=== PATIENT | female | born 1995 | race Hispanic/Latino ===

== ENCOUNTER 2023-09-04 16:48 | Emergency (ER) | payer SELFPAY ==
[2023-09-04] MEDS ORDERED: LIDOCAINE 1% MPF 5 ML VIAL ONE (17:17)
--- NOTE | 2023-09-04 17:38 | EDPHYS ---
Physician Documentation [facility] Name: Ai Andrea Age: 27 yrs Sex: Female : 1995 Arrival Date: 09/04/2023 Time: 16:48 Bed 11 Private MD: ED Physician Brayan Lockhart HPI: 09/03 17:04 This 27 yrs old Female presents to ER via Unassigned with complaints of kb Laceration To Hand. 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 - Infectious Disease History:: Denies. - Social history:: Smoking status: Patient denies any tobacco usage or history of. ROS: 17:04 Constitutional: As per HPI kb Exam: 17:06 Constitutional: This is a well developed, well nourished patient who is awake, alert, kb and in no acute distress. Head/Face: Normocephalic, atraumatic. ENT: Moist Mucous membranes Cardiovascular: Regular rate Respiratory: Respirations even and unlabored. No increased work of breathing. Talking in full sentences MS/ Extremity: Pulses equal, no cyanosis. Neurovascular intact. Full, normal range of motion. Neuro: Awake and alert, GCS 15, oriented to person, place, time, and situation. Moves all extremities. Normal gait. 17:06 Skin: injury, laceration(s), the wound is approximately 2.5 cm(s), of the right thumb, that can be described as clean, no foreign body, linear, with mild bleeding, Vital Signs: 17:02 BP 120 / 102; Pulse 74; Resp 16; Temp 97.4(TE); Pulse Ox 100% ; Weight 57.61 kg; Height hb 5 ft. 2 in. ; Pain 8/10; 18:04 BP 118 / 78; Pulse 82; Resp 18; Temp 98.9; Pulse Ox 100% ; Pain 0/10; kb3 17:02 Body Mass Index 23.23 (57.61 kg, 157.48 cm) hb 17:02 Pain Scale: Adult hb 18:04 Pain Scale: Adult kb3 Laceration: 17:47 Wound Repair of 2.5cm ( 1.0in ) subcutaneous laceration to right thumb. Irregularly kb shaped.. Distal neuro/vascular/tendon intact. Anesthesia: Wound infiltrated with 2 mls of 1% lidocaine. Wound prep: Extensive cleansing with hibiclenz by me, Wound irrigation with saline by me. Skin closed with 5 4-0 Prolene using simple sutures and sterile technique. Patient tolerated well. MDM: 17:00 Patient medically screened. kb 17:06 Differential diagnosis: superficial laceration, tendon injury, vascular injury. Data kb reviewed: vital signs, nurses notes. Test considered but Not performed: X-ray: hand xray considered but laceration is superficial and pt has full ROM of thumb without pain. Counseling: I had a detailed discussion with the patient and/or guardian regarding the historical points, exam findings, and any diagnostic results supporting the discharge/admit diagnosis, the need for outpatient follow up, a family practitioner, to return to the emergency department if symptoms worsen or persist or if there are any questions or concerns that arise at home. 09/03 17:05 Order name: Dressing - Wound; Complete Time: 17:27 kb 09/03 17:05 Order name: Gloves, Sterile; Complete Time: 17:27 kb 09/03 17:05 Order name: Prolene, Sutures; Complete Time: 17:27 kb 09/03 17:05 Order name: Setup Suture Tray; Complete Time: 17:27 kb 09/03 17:37 Order name: Finger Splint; Complete Time: 17:51 kb Administered Medications: 17:56 Drug: Boostrix Tdap IM 0.5 ml IM once; as a single dose Route: IM; Site: right deltoid; kb3 18:00 Follow up: Response: No adverse reaction kb3 18:00 Drug: Lidocaine Infiltration (1 %) 1 vials 5 ml Infiltration once; to bedside {Note: STEPHANIE kb3 administered during procedure.} Volume: 5 ml; Route: Infiltration; Disposition Summary: 09/04/23 17:38 Discharge Ordered Notes: Location: Home kb Condition: Stable kb Diagnosis - Laceration without foreign body of right thumb without damage to nail kb Followup: kb - With: Emergency Department - When: As needed - Reason: Worsening of condition Followup: kb - With: Private Physician - When: 2 - 3 days - Reason: Recheck today's complaints, Continuance of care, Re-evaluation by your physician Discharge Instructions: - Discharge Summary Sheet kb - Laceration Care, Adult, [id number] kb Forms: - Medication Reconciliation Form kb - Antibiotic Education kb - Prescription Opioid Use kb - Patient Portal Instructions kb - Leadership Thank You Letter kb Addendum: 09/06/2023 14:18 I was immediately available for consultation during this patient's visit. I did not e c2 personally see the patient or discuss the patient with the AUTUMN. . Signatures: Colleen Escamilla, WENDI CLEVELAND-Loni Lopez, RN RN Brooklynn Ibarra RN RN kb3 Brayan Lockhart MD MD ec2
--- NOTE | 2023-09-04 17:38 | ER ---
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 Bleeding controlled by pressurel. Coronavirus screen: At this time, the client does not indicate any symptoms associated with coronavirus-19. Ebola Screen: No symptoms or risks identified at this time. Complicating Factors: There are no complicating factors for this patient. Initial Sepsis Screen: Does the patient meet any 2 criteria? No. Patient's initial sepsis screen is negative. Does the patient have a suspected source of infection? No. Patient's initial sepsis screen is negative. Risk Assessment: Do you want to hurt yourself or someone else? Patient reports no desire to harm self or others. Onset of symptoms was September 04, 2023. 17:02 Method Of Arrival: Ambulatory hb 17:02 Acuity: DIANNE 4 hb Triage Assessment: 17:19 General: Appears in no apparent distress. uncomfortable, Behavior is calm, cooperative. hb Pain: Pain currently is 8 out of 10 on a pain scale. Neuro: Level of Consciousness is awake, alert, obeys commands, Oriented to person, place, time, situation. Cardiovascular: Patient's skin is warm and dry. Respiratory: Respiratory effort is even, unlabored, Respiratory pattern is regular, symmetrical. Injury Description: Laceration sustained to right thumb is jagged, 2.6 to 7.5 cm long, bleeding moderately, was sustained 30-60 minutes ago. 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 - Infectious Disease History:: Denies. - Social history:: Smoking status: Patient denies any tobacco usage or history of. Screenin:15 [facility] ED Fall Risk Assessment (Adult) History of falling in the last 3 months, kb3 including since admission No falls in past 3 months (0 pts) Confusion or Disorientation No (0 pts) Intoxicated or Sedated No (0 pts) Impaired Gait No (0 pts) Mobility Assist Device Used No (0 pt) Altered Elimination No (0 pt) Score/Fall Risk Level 0 - 2 = Low Risk Oriented to surroundings. Abuse screen: Denies threats or abuse. Denies injuries from another. Nutritional screening: No deficits noted. Tuberculosis screening: No symptoms or risk factors identified. Assessment: 17:15 General: Appears in no apparent distress. Behavior is calm, cooperative. Injury kb3 Description: Laceration sustained to dorsal aspect of distal phalanx of right thumb is clean, 0.5 to 2.5 cm long, not bleeding, was sustained 30-60 minutes ago. is bleeding a small amount a dressing was applied. Vital Signs: 17:02 BP 120 / 102; Pulse 74; Resp 16; Temp 97.4(TE); Pulse Ox 100% ; Weight 57.61 kg; Height hb 5 ft. 2 in. ; Pain 8/10; 18:04 BP 118 / 78; Pulse 82; Resp 18; Temp 98.9; Pulse Ox 100% ; Pain 0/10; kb3 17:02 Body Mass Index 23.23 (57.61 kg, 157.48 cm) hb 17:02 Pain Scale: Adult hb 18:04 Pain Scale: Adult kb3 ED Course: 16:50 Patient arrived in ED. rg4 17:00 Colleen Escamilla [facility]NP[facility]C [facility]. kb 17:00 Brayan Lockhart MD is Attending Physician. kb 17:19 Triage completed. hb 17:19 Arm band placed on. hb 17:30 Patient has correct armband on for positive identification. Bed in low position. Call kb3 light in reach. Provided Education on: Plan of care. 18:00 No provider procedures requiring assistance completed. Patient did not have IV access kb3 during this emergency room visit. Dressings: 4X4s X 1; dorsal aspect of distal phalanx of right thumb. Finger splint to right thumb. Administered Medications: 17:56 Drug: Boostrix Tdap IM 0.5 ml IM once; as a single dose Route: IM; Site: right deltoid; kb3 18:00 Follow up: Response: No adverse reaction kb3 18:00 Drug: Lidocaine Infiltration (1 %) 1 vials 5 ml Infiltration once; to bedside {Note: STEPHANIE kb3 administered during procedure.} Volume: 5 ml; Route: Infiltration; Medication: 17:15 Vaccine Information Statement (VIS) provided today. Questions and/or concerns kb3 addressed. VIS edition date: August 19, 2020. Outcome: 17:38 Discharge ordered by . kb 18:00 Discharged to home ambulatory, with family, kb3 18:00 Condition: stable 18:00 Discharge instructions given to patient, family, Instructed on discharge instructions, follow up and referral plans. medication usage, Demonstrated understanding of instructions, follow-up care, medications, 18:05 Patient left the ED. kb3 Signatures: Colleen Escamilla, SUGAR CHIPPER MACHINE OPERATOR-C SUGAR CHIPPER MACHINE OPERATOR-Ckb Lnoi Iverson, RN RN Christina Minaya rg4 Brooklynn Escobar RN RN kb3 Corrections: (The following items were deleted from the chart) 18:03 17:15 General: Appears in no apparent distress. Behavior is calm, cooperative, kb3 kb3
[2023-09-04] MEDS ORDERED: TDAP (DIPHTH,PERTUSS(ACELL),TET VAC) 0.5 ML VIAL IMVAC ONE (17:43)
[2023-09-04 18:16] VITALS: BP 118/78; TEMP 98.9; O2SAT 100
== END 2023-09-04 18:05 | disposition home or self-care (01) ==
LOC: ER 16:48
PROC: 0HQFXZZ Repair Right Hand Skin, External Approach (ICD-10-PCS; principal; 2023-09-04)
DX: S61.011A Laceration without foreign body of right thumb without damage to nail, initial encounter (principal)
CPT/HCPCS: 96372; 99284; J2001